=== PATIENT | female | born 1995 | race Caucasian/White ===

== ENCOUNTER 2016-07-01 18:34 | Emergency (ER) | payer OTHER ==
[~2016-07-01] VITALS: Ht 162.6 cm; Wt 54.5 kg
[~2016-07-01 18:34] MED LIST: ALBU8.5H2 INHALATION; Ascorbic Acid PO; DOCU-41 PO; FERR-74 PO; FLUT12AE10 IH; IBUP-1827 PO; Lanolin TOPICAL; OXYC1TAB24 PO; PREN-12 PO
[2016-07-01 18:41] VITALS: BP 133/79; PULSE 91; RESP 16; O2SAT 96
--- NOTE | 2016-07-01 20:00 | ED.REPORT ---
HPI-Rash / Abscess Date of Service Jul 01, 2016 ED Provider: Kelly Donahue History of Present Illness: started last night, was a zit, squeezed last night, tried squeezing today. tdap up to date. no primary care. normaly healthy 01/23 pain Nursing Notes Stated Complaint: INFECTION ON FACE Chief Complaint: Skin Rash/Abscess Nursing Notes Reviewed: Yes Allergies: Coded Allergies: sertraline (Verified Adverse Reaction, Unknown, SUICIDAL IDEATION, 07/01/16 ) Scheduled ([Ascorbic Acid]) 500 MG TABLET 500 MG PO BIDWM Albuterol HFA (Proair HFA) 8.5 Gm Hfa.aer.ad Unknown Dose INHALATION Q4H Docusate Sodium (Colace) 100 Mg Capsule 100 MG PO BID Ferrous Sulfate (Feosol) 325 Mg Tablet 325 MG PO BIDWM Fluticasone Propionate (Flovent HFA 220 mcg) 12 Gm Aer.w.adap 2 PUFFS IH BID Vit W-Ca,Fe,FA(<1 mg) ( Formula) 1 Each Tablet 1 EACH PO DAILY Scheduled PRN ([Lanolin]) 2 APPLIC/GM OINT 1 APPLIC TOPICAL PRN PRN PRN apply to nipples Ibuprofen (Ibuprofen) 600 Mg Tablet 600 MG PO Q6H PRN PRN For Mild Pain oxyCODONE-Acetaminophen 5-325 mg (oxyCODONE-Acetaminophen 5-325 mg) 1 Each Tablet 1-2 TAB PO Q4H PRN PRN For Pain General Time Seen by MD: 19:59 Chief Complaint Rash Hx Obtained From: Patient Past Medical History Past Medical History Reports: Asthma (inhalers last used 1 week ago), Denies: Diabetes mellitus Past Surgical History lung 10 years with pneumonia Smoking History Never Smoker Social History Alcohol Use: Denies alcohol use Drug Use: Denies drug use Other Social History: Lives with parents Occupation no work or school 07/01/2016 Ambulatory Status Independent Review of Systems Basic Review of Systems : No dysuria, No frequency Hematologic: No bleeding, No bruising Endocrine: No cold intolerance, No heat intolerance, No weight gain, No weight loss Neurologic: NL mental status, No weakness, No numbness Psychiatric: Normal thought content Physical Exam Initial Vital Signs Vital Signs (First) Date Time Temp Pulse Resp B/P Pulse Ox O2 Delivery O2 Flow Rate FiO2 07/01/16 18:41 36.3 91 16 133/79 96 Room Air Initial VS: Reviewed, Vital signs normal Head / Eyes: Atraumatic, Normocephalic, PERRL ENT: Mucous membranes moist, Conjunctiva normal, No scleral icterus Neck: Supple, Non-tender, Full range of motion Respiratory: Breath sounds normal, Clear to auscultation, No respiratory distress Cardiovascular: Regular rate & rhythm, Heart sounds normal, Intact distal pulses Abdomen / GI: Soft, Non-tender, No guarding, No rebound, No distention Back: No CVA tenderness Lymphatic: No lymphadenopathy Extremities: Vascular intact, Neuro intact, No swelling, No tenderness Neurologic: Alert, Oriented, Nonfocal Psychiatric: Mood/affect normal, Behavior normal, Normal thought content General/Constitutional: Awake, Alert, No acute distress, Well appearing, Well developed, Well hydrated small scabbed area just above nose. mild swelling into eyes, right greater than left. No erthyma, no increased warmth, swelling around scabbed area, no palpable discharge Wheezing / Retractions: Positive: Wheeze insp/exp diffuse Cardiovascular: Heart rate NL, Regular rhythm, Heart sounds NL Interpretation & Diagnostics Lab Results Interpretation Result Diagram: 07/01/16195707/01/161957 Test 07/01/16 19:58 White Blood Count 11.8th/mm3 (3.8-10.1) Red Blood Count 5.11mil/mm3 (3.90-5.20) Hemoglobin 14.5g/dL (12.0-15.6) Hematocrit 42.4% (35.0-46.0) Mean Corpuscular Volume 83.0fL (81-100) Mean Corpuscular Hemoglobin 28.4pg (27.0-35.0) Mean Corpuscular Hemoglobin Concent 34.2% (32.0-37.0) Red Cell Distribution Width 14.6% (12.3-15.4) Platelet Count 206bil/L (150-400) Neutrophils (%) (Auto) 75.2% (40-74) Lymphocytes (%) (Auto) 16.0% (14-46) Monocytes (%) (Auto) 8.3% (4-12) Eosinophils (%) (Auto) 0.2% (0-5) Basophils (%) (Auto) 0.1% (0-3) Sodium Level 140mEq/L (134-144) Potassium Level 4.1mEq/L (3.5-5.2) Chloride Level 101mEq/L (97-108) Carbon Dioxide Level 27mmol/L (18-29) Blood Urea Nitrogen 17mg/dL (6-20) Creatinine 0.97mg/dL (0.57-1.00) Estimat Glomerular Filtration Rate 103mL/min (>59) Glucose Level 88mg/dL (60-99) Calcium Level 10.0mg/dL (8.5-10.1) Total Bilirubin 0.6mg/dL (0.0-1.2) Aspartate Amino Transf (AST/SGOT) 15U/L (0-50) Alanine Aminotransferase (ALT/SGPT) 12U/L (0-32) Alkaline Phosphatase 65U/L (25-150) Total Protein 7.1g/dL (6.4-8.4) Albumin 4.1g/dL (3.4-5.0) Hold Ingram Top Tube Received (Received) Re-Eval/Medical Decision Med Decision/Clinical Course lungs inproved after neb but still with faint wheezing, decadron provided ofr today and tomorrow Discharge & Departure Impression: Primary Impression: Wheezing Additional Impressions: Facial swelling Papule of skin Disposition: Home Additional Instructions: Your lungs have improved after the nebulizer treatment, however, there is still some faint wheezes. You had a dose of decadron in the ER, repeat the dose tomorrow afternoon around 1 pm. DO NOT SQUEEZE! Apply the bactroban 3 times a day to the site for 7 days. Use bactrim in the am and pm for 7 days. You had the first dose in the ER. Need to use ice to the site to decrease the swelling. Use it 15 minutes on and 15 minutes off for 3 days. Must have a barrier between the ice and your face, a pillow case works great. Use ibuprofen 800 mg 3 times a day for 5 days. REturn to the ER for a recheck on Friday. Sooner if worsening of your symptoms. Establish in primary care with the residency clinic. Referrals: [facility] EDSupervising Provider for APC: Luoie Savage DO copies to: [facility] Kelly Donahue Jul 01, 2016 19:59
[2016-07-01 20:06] LABS: BASOPHILS % (AUTO) 0.1 % (0-3); EOSINOPHILS % (AUTO) 0.2 % (0-5); MONOCYTES % (AUTO) 8.3 % (4-12); Mean Corpuscular Hemoglobin 28.4 pg (27.0-35.0); NEUTROPHILS % (AUTO) 75.2 % (40-74); Platelet Count 206 bil/L (150-400)
[2016-07-01] MEDS ORDERED: cefTRIAXone Inj 1,000 MG, Lidocaine PF 1% Inj 2.1 ML in Syringe 0 EACH IM ONE (20:10)
[2016-07-01] MEDS ORDERED: Ketorolac 30 mg/mL 2 mL Inj IM ONE (20:10)
[2016-07-01] MEDS ORDERED: Albuterol HFA 60 Puff 8 Gm Inhaler INHALATION ONE (20:10)
[2016-07-01] MEDS ORDERED: Trimethoprim-Sulfa 160 mg-800 mg Tablet PO ONE (20:10)
[2016-07-01] MEDS ORDERED: Mupirocin 2% 22 Gm Ointment TOPICAL ONE (20:15)
[2016-07-01] MEDS ORDERED: Albuterol 2.5 mg/3 mL Inhalation Solution NEB ONE (20:30)
[2016-07-01 20:40] VITALS: PULSE 68; RESP 18; O2SAT 98
[2016-07-01] MEDS ORDERED: Dexamethasone 20 mg/2 mL Oral Solution PO ONE (21:00)
[2016-07-01 21:23] VITALS: BP 129/69; PULSE 115; RESP 20; O2SAT 96
== END 2016-07-01 21:25 | disposition home or self-care (01) ==
LOC: SED 18:34
DX: R06.2 Wheezing (principal); R22.0 Localized swelling, mass and lump, head; R23.8 Other skin changes; J45.909 Unspecified asthma, uncomplicated; Z88.8 Allergy status to other drugs, medicaments and biological substances
CPT/HCPCS: 36415; 80053; 85025; 94640; 96372; 99284; J0696; J1885; J7613